=== PATIENT | female | born 1995 | race Native Hawaiian/Other Pacific Islander ===

== ENCOUNTER 2020-02-17 13:46 | Outpatient (REF) | payer OTHER, SELFPAY | END 2020-02-17 13:47 | disposition home or self-care (01) | LOC: HO.LAB 13:46 | PROVIDERS: Visit Provider Internal Medicine | DX: Z20.828 Contact with and (suspected) exposure to other viral communicable diseases (principal) | CPT/HCPCS: C9803; U0003 ==

== ENCOUNTER 2020-05-03 14:29 | Outpatient (REF) | payer OTHER, SELFPAY | END 2020-05-03 14:30 | disposition home or self-care (01) | LOC: HO.LAB 14:29 | PROVIDERS: Visit Provider Internal Medicine | DX: Z20.822 Contact with and (suspected) exposure to COVID-19 (principal) | CPT/HCPCS: 36415; C9803; U0003; U0005 ==

== ENCOUNTER 2021-02-18 14:05 | Emergency (ER) | payer OTHER, SELFPAY ==
[2021-02-18 15:13] VITALS: BP 115/35; PULSE 87; RESP 16; TEMP 36.3; O2SAT 100; BMI 21.9
[2021-02-18 15:38] LABS: UPreg QC Valid YES; Urine Pregnancy NEGATIVE (NEGATIVE)
--- NOTE | 2021-02-18 17:25 | ED.GENADULT ---
HPI - General Adult General Chief complaint: General Medical Stated complaint: ABD PAIN QUEST Time Seen by Provider: 02/18/21 17:22 Source: patient Mode of arrival: ambulatory Limitations: no limitations History of Present Illness HPI narrative: 26-year-old female presenting to the ER for evaluation of possible . She states her breasts are tender and sore. She took 2 test at home and feels like they were positive. She saw a slight line and is concerned she might be . Her partner told her that she was seeing things and that was negative. She had her IUD removed in the middle of December and has been on oral control pill since then. She has not had a period since her IUD was removed. She denies any abdominal pain, cramping, bleeding, vaginal discharge. MD complaint: Evaluation of possible . Relieving factors: none Exacerbating factors: none Associated symptoms: denies other symptoms Treatments prior to arrival: none Related Data Allergies Allergy/AdvReac Type Severity Reaction Status Date / Time latex Allergy Rash Verified 02/18/21 17:18 Penicillins Allergy Hives Verified 02/18/21 17:18 Review of Systems Review of Systems: Constitutional: No Fever, No Chills Cardiovascular: No Chest Pain, No SOB Respiratory: No Cough, No Sputum Gastrointestinal: No Nausea, No Vomiting, No abdominal Pain Genitourinary: No Dysuria, No Urinary Frequency, No Hematuria, no vaginal bleeding, no vaginal discharge. Musculoskeletal: No joint pain, + Myalgias Psych: + Anxiety/Panic PMFSH Past Medical History Medical History (Updated 02/18/21 @ 17:27 by KRISH Venegas) No known health problems Social History Social History Advance Directives: No Advance Directives Information Provided: Yes Physical Exam Vital Signs: Vital Signs: Last Vital Signs Temp 97.4 F 02/18/21 15:13 Pulse 87 02/18/21 15:13 Resp 16 02/18/21 15:13 BP 115/35 L 02/18/21 15:13 Pulse Ox 100 02/18/21 15:13 BMI result Body Mass Index 21.9 Appearance: Alert. Oriented X3. No acute distress. HEENT: normal inspection CVS: Normal heart rate and rhythm. Pulses normal. Respiratory: No respiratory distress. Skin: Skin warm and dry. Normal skin color. Normal skin turgor. No rashes. Extremities: Normal inspection, normal range of motion Neuro: Oriented X 3. Grossly normal, nonfocal Course Course Course Narrative: 23-year-old female presenting to the ER for evaluation of possible . She has tender breast but that is her only symptom. She has had no known menstrual cycle since her IUD was removed. There is a question of a positive test at home with faint line however her partner denies this. Today her urine test is negative. There is no indication for blood test. She is encouraged to repeat the test at home if she is still concerned for . Her breast tenderness may be due to her getting her menstrual cycle. At this time she is counseled and stable for discharge home Medical Decision Making Lab Data Labs: Lab Results 02/18/21 Range/Units 15:28 Urine Test NEGATIVE (NEGATIVE) Discharge Plan Discharge Clinical Impression: Breast tenderness in female, Irregular menses Patient Disposition: Home, Self-Care Instructions: Premenstrual Syndrome (ED) Additional Instructions: Your test today was negative. If you are still concerned about , recommend repeating the test in 48 hours. Use the urine from your 1st void in the morning. Follow up with your chief analytics officer as needed. Interventions: ED Discharge Assessment Last Done: 02/18/21 17:45 Discharge Date/Time: 02/18/21 17:47
== END 2021-02-18 17:47 | disposition home or self-care (01) ==
PROVIDERS: Emergency Provider Emergency Medicine Emergency Medical Services
DX: N64.4 Mastodynia (principal); N92.6 Irregular menstruation, unspecified
CPT/HCPCS: 81025; 99283; 99284

== ENCOUNTER 2021-03-02 11:46 | Outpatient (REF) | payer OTHER, SELFPAY | END 2021-03-02 11:47 | disposition home or self-care (01) | LOC: HO.LAB 11:46 | PROVIDERS: Visit Provider Internal Medicine | DX: Z20.822 Contact with and (suspected) exposure to COVID-19 (principal) | CPT/HCPCS: C9803; U0003; U0005 ==

== ENCOUNTER 2021-11-15 11:23 | Emergency (ER) | payer OTHER, SELFPAY ==
--- NOTE | 2021-11-15 | ECG_ITS ---
Test Reason : CHEST PAIN Blood Pressure : / mmHG Vent. Rate : 104 BPM Atrial Rate : 104 BPM P-R Int : 118 ms QRS Dur : 076 ms QT Int : 312 ms P-R-T Axes : 070 050 010 degrees QTc Int : 410 ms Sinus tachycardia Otherwise normal ECG No previous ECGs available Referred By: Generic ED Physician Electronically Signed By:AUGUSTIN MCMULLEN
[2021-11-15 12:07] VITALS: BP 117/72; PULSE 111; RESP 18; TEMP 37.1; O2SAT 99; BMI 20.6
--- NOTE | 2021-11-15 12:35 | PC.NURSE ---
pt is now c/o chest pain, ekg to be performed
[2021-11-15 13:05] LABS: COVID-19 Test Negative (Negative); IDNOW Serial# 55D5AD1C
== END 2021-11-15 16:22 | disposition left against medical advice (07) ==
PROVIDERS: Emergency Provider Emergency Medicine; PCP Internal Medicine
DX: R11.10 Vomiting, unspecified (principal); H53.8 Other visual disturbances; M79.10 Myalgia, unspecified site; R07.89 Other chest pain; Z20.822 Contact with and (suspected) exposure to COVID-19
CPT/HCPCS: 87635; 93005; 99283

== ENCOUNTER 2023-05-22 10:23 | Emergency (ER) | payer MEDICAID, SELFPAY ==
[2023-05-22 10:57] VITALS: BP 116/57; PULSE 73; RESP 16; TEMP 36.2; O2SAT 100; BMI 23.5
[2023-05-22 11:15] LABS: MANUAL DIFF FLAG NO
[2023-05-22 11:17] LABS: Basophils Percent Auto 0.4 % (0-2); Eosinophils Percent Auto 0.4 % (0-4); Hematocrit 44.6 % (37.0-47.0); Imm Gran Abs Auto 0.03 X10*3/uL (0.00-0.03); Imm Gran Pct Auto 0.3 % (0.0-0.4); Lymphocytes Absolute Auto 2.6 X10*3/uL (1.2-4.9); Lymphocytes Percent Auto 27.9 % (20-40); Mean Corpuscular HGB Conc 33.6 g/dl (31.0-35.0); Mean Corpuscular Hemoglobin 30.5 pg (27.0-33.0); Mean Corpuscular Volume 90.8 fL (80.0-98.0); Mean Platelet Volume 12.1 fL (9.4-12.3); Monocytes Absolute Auto 0.7 X10*3/uL (0.1-1.2); Monocytes Percent Auto 7.4 % (2-11); Neutrophils Absolute Auto 5.8 x10*3/uL (2.0-8.3); Neutrophils Percent Auto 63.6 % (45-73); Platelet Count 221 X10*3/uL (160-400); Red Blood Count 4.91 X10*6/uL (4.20-5.50); Red Cell Distribution Width 12.6 % (11.0-16.0); White Blood Count 9.1 X10*3/uL (4.8-10.8)
[2023-05-22 11:42] LABS: Alanine Aminotransferase 20 U/L (0-31); Albumin Level 4.5 g/dL (3.5-5.0); Alkaline Phosphatase 76 U/L (39-117); Anion Gap 10 (12-20); Aspartate Amino Transferase 24 U/L (5-31); Bilirubin Total 0.3 mg/dL (0.0-1.0); Blood Urea Nitrogen 19 mg/dL (9-16); Calcium 9.9 mg/dL (8.4-10.2); Carbon Dioxide 29 mmol/L (22-29); Chloride 105 mmol/L (96-108); Creatinine Clr Calc Pharmacy 80.2; Estimated Glomerular Filt Rate > 60; Glucose Random 85 mg/dL (60-115); Lipase 18 U/L (8-78); Potassium 4.1 mmol/L (3.3-5.1); Sodium 140 mmol/L (135-145)
[2023-05-22 11:47] LABS: HCG Quantitative < 2 mIU/mL
[2023-05-22 12:44] LABS: Influenza A PCR NEGATIVE (Negative); Influenza B PCR NEGATIVE (Negative); Resp Syncy Virus RNA Qual PCR NEGATIVE (Negative); SARS COV2 PCR INHOUSE NEGATIVE (Negative)
[2023-05-22 16:47] VITALS: BP 97/71; PULSE 73; RESP 16; O2SAT 97
[2023-05-22 17:07] LABS: Appearance Urine Clear; Color Urine Yellow; Glucose Urine UA Negative (Negative); Leukocyte Esterase Urine Negative (Negative); Nitrite Urine Negative (Negative); PH 7.5 (5.0-9.0); Specific Gravity - Urine 1.025 (1.005-1.025); Urine Blood Negative (Negative); Urine Ketones Negative (Negative); Urine Protein Negative (Neg-Trace)
--- NOTE | 2023-05-22 18:33 | ED_ITS ---
HPI - General Adult General Chief complaint: Nausea/Vomiting/Diarrhea Stated complaint: Vomiting Time Seen by Provider: 05/22/23 18:18 Source: patient Limitations: no limitations History of Present Illness HPI narrative: 28 years old, , presents emergency room for nausea and vomiting that started today. Patient has been started on sunday on doxycycline for her partner positive for chlamydia. She has not received ceftriaxone She is also 2 weeks late on her period which she usually gets every 4 weeks. Patient is not on any anti contraceptive. Has had unprotected sex with a partner over the past 30 days. Denies vaginal discharge or vaginal bleeding. Denies dyspareunia. Reports allergy to penicillin: Rash Denies abdominal pain, chest pain, shortness of breath Related Data Previous Rx's Medication Instructions Recorded ondansetron HCl 4 mg tablet 4 mg PO BEDTIME PRN nausea and 05/22/23 vomiting 4 days #14 tabs Allergies Allergy/AdvReac Type Severity Reaction Status Date / Time latex Allergy Intermediate Rash Verified 11/15/21 12:07 Penicillins Allergy Intermediate Hives Verified 11/15/21 12:07 Review of Systems 2 Review of Systems: Yes all other systems are reviewed and are negative [facility] Past Medical History Medical History (Updated 05/22/23 @ 19:24 by Dionte Ordaz MD) No known health problems Social History Social History Smoked in Last 30 Days: No Use of substances other than those prescribed or required for medical reasons: No Advance Directives: No Advance Directives Information Provided: No Physical Exam ED Vital Signs: Vital Signs - 24 hr 05/22/23 10:57 05/22/23 16:47 05/22/23 19:28 Temperature 97.2 F 97.7 F Pulse Rate 73 73 67 Respiratory Rate 16 16 18 Blood Pressure 116/57 L 97/71 104/60 Pulse Oximetry 100 97 98 Oxygen Delivery Method Room Air Room Air Room Air BMI result Body Mass Index 23.5 General: Alert, Not in Distress Skin: No rash, warm HEENT: Atraumatic, No Exudate or Pharyngeal Erythema Resp: Normal Breath sounds bilaterally Cardio: Regular rate and Rhythm, Normal S1, S2 ABD: Abd soft, non tender, no guarding or rebound. Normal Bowel sounds. : No cva tenderness Neuro: Alert, oriented x4, PERRL Strenght 5/5 on all extremities Sensation is preserved in both lower and upper extremities Index to nose: normal Cranial Nerves II-XII grossly intact No dysarthria, or aphasia No neglet. Visual mondragon are normal bilaterally Psych: Cooperative, NO SI Course Reevaluation(s) Reevaluation #1: test is negative. At this time the cause of the amenorrhea is unclear. I recommended the patient to continue take a vitamin until she gets her next menstruation. I offered the patient to change the doxycycline to azithromycin considering that the nausea and vomiting is possibly secondary to the antibiotic however the patient would prefer continuing doxycycline being these the first-line to treat chlamydia. Will give ceftriaxone 500 mg IM and observed for 30 minutes. Time: 19:20 Reevaluation #2: No reaction to cephalosporin. Will DC home. Time: 20:14 Medications Administered Discontinued Medications Generic Name Dose Route Start Last Admin Trade Name Freq PRN Reason Stop Dose Admin Ceftriaxone Sodium 500 mg 05/22/23 18:27 05/22/23 19:49 Ceftriaxone Sodium 500 Mg Vial IM 05/22/23 18:28 Not Given ONCE ONE Ceftriaxone Sodium 500 mg/ 0 mg 05/22/23 19:38 05/22/23 19:50 Lidocaine HCl 1 ml IM 05/22/23 19:39 500 kit ONCE ONE Administration Ondansetron HCl 4 mg 05/22/23 18:27 05/22/23 19:28 Ondansetron Odt 4 Mg Tab.Rapdis TRANSLINGU 05/22/23 18:28 4 mg ONCE ONE Administration Medical Decision Making Medical Decision Making [facility] Narrative: Patient presented to the emergency room for nausea and vomiting. Possible differential diagnosis include medication reaction to doxycycline or 1st trimester and hyperemesis gravidarum. Patient lab work done in triage were unremarkable, test is pending. Plan Treat STI with ceftriaxone 500 mg IM will keep the patient for 30 to 60 minutes after injection to make sure she does not develop any allergic reaction considering she has flushed the penicillin If patient is we will give 1 single dose of 1 g of azithromycin If patient is not will discuss with her possibly starting azithromycin versus continuing doxycycline. Will give Zofran Admission/Observation Consideration of admission/observation: Escalation of care including admission/observation considered Lab Data [facility] Lab Attestation statement: I reviewed the patient's lab results. 05/22/23 11:09 05/22/23 11:09 Labs: Lab Results 0305/22/23 05/22/23 Range/Units 11:09 12:01 16:58 WBC 9.1 (4.8-10.8) X10*3/uL RBC 4.91 (4.20-5.50) X10*6/uL Hgb 15.0 (12.0-16.0) g/dl Hct 44.6 (37.0-47.0) % MCV 90.8 (80.0-98.0) fL MCH 30.5 (27.0-33.0) pg MCHC 33.6 (31.0-35.0) g/dl RDW 12.6 (11.0-16.0) % Plt Count 221 (160-400) X10*3/uL MPV 12.1 (9.4-12.3) fL Immature Gran % (Auto) 0.3 (0.0-0.4) % Neut % (Auto) 63.6 (45-73) % Lymph % (Auto) 27.9 (20-40) % [place] % (Auto) 7.4 (2-11) % Eos % (Auto) 0.4 (0-4) % Baso % (Auto) 0.4 (0-2) % Lymph # (Auto) 2.6 (1.2-4.9) X10*3/uL [place] # (Auto) 0.7 (0.1-1.2) X10*3/uL Eos # (Auto) 0.0 (0.0-0.4) X10*3/uL Baso # (Auto) 0.0 (0.0-0.2) X10*3/uL Abs Immat Gran (auto) 0.03 (0.00-0.03) X10*3/uL Absolute Neuts (auto) 5.8 (2.0-8.3) x10*3/uL Absolute Nucleated RBC 0.000 (0.0-0.012) X10*3/uL Nucleated RBC % (auto) 0.0 (0.0-0.2) /100WBC Sodium 140 (135-145) mmol/L Potassium 4.1 (3.3-5.1) mmol/L Chloride 105 (96-108) mmol/L Carbon Dioxide 29 (22-29) mmol/L Anion Gap 10 L (12-20) BUN 19 H (9-16) mg/dL Creatinine 0.84 (0.5-1.4) mg/dL Estim Creat Clear Calc 80.2 Estimated GFR > 60 Random Glucose 85 (60-115) mg/dL Calcium 9.9 (8.4-10.2) mg/dL Total Bilirubin 0.3 (0.0-1.0) mg/dL AST 24 (5-31) U/L ALT 20 (0-31) U/L Alkaline Phosphatase 76 (39-117) U/L Total Protein 8.0 (6.5-8.0) g/dL Albumin 4.5 (3.5-5.0) g/dL Lipase 18 (8-78) U/L Beta HCG, Quant < 2 mIU/mL Urine Color Yellow Urine Appearance Clear Urine pH 7.5 (5.0-9.0) Ur Specific Mobile 1.025 (1.005-1.025) Urine Protein Negative (Neg-Trace) mg/dL Urine Glucose (UA) Negative (Negative) mg/dL Urine Ketones Negative (Negative) mg/dL Urine Blood Negative (Negative) Urine Nitrite Negative (Negative) Ur Leukocyte Esterase Negative (Negative) Urine Test NEGATIVE (NEGATIVE) Influenza Type A (PCR) NEGATIVE (Negative) Influenza Type B (PCR) NEGATIVE (Negative) RSV RNA Qual (PCR) NEGATIVE (Negative) SARS-CoV-2 RNA (RT-PCR) NEGATIVE (Negative) External Record Review External record reviewed: Prior outpatient labs Prescription Management I considered prescription management with: Antibiotic Discharge Plan Discharge Clinical Impression: Vomiting Patient Disposition: Home, Self-Care Additional Instructions: You were seen in the emergency room for vomiting. It is possible that this is secondary to doxycycline we offered the azithromycin has a alternative option but at this time you prefer continue this antibiotic. For nausea we recommend using Zofran 4 mg Q 8 hours for symptoms control. If you are unable to tolerate p.o. or to take your antibiotic please return to the emergency room or go to an urgent care to be switched to azithromycin. You also received ceftriaxone 500 mg IM which will cover for possible infection with gonorrhea. Continue to take your vitamin until your next menstruation. Repeat test in 1 week if still not having your menstruation. Prescriptions: New ondansetron HCl 4 mg tablet 4 mg PO BEDTIME PRN (Reason: nausea and vomiting) 4 Days Qty: 14 0RF
[2023-05-22 19:00] LABS: UPreg QC Valid YES; Urine Pregnancy NEGATIVE (NEGATIVE)
[2023-05-22 19:28] VITALS: BP 104/60; PULSE 67; RESP 18; TEMP 36.5; O2SAT 98
[2023-05-22] MEDS: Ondansetron ODT 4 MG TAB.RAPDIS TRANSLINGU (19:28)
[2023-05-22] MEDS: cefTRIAXone sodium 500 MG, Lidocaine HCl 1 % MPF 1 ML IM (19:50)
[2023-05-22 20:00] VITALS: BP 111/62; PULSE 71; RESP 19; TEMP 36.5; O2SAT 98
== END 2023-05-22 20:22 | disposition home or self-care (01) ==
PROVIDERS: Physician Assistant Medical; Emergency Provider Student in an Organized Health Care Education/Training Program
DX: R11.2 Nausea with vomiting, unspecified (principal); N91.2 Amenorrhea, unspecified; R19.7 Diarrhea, unspecified; Z79.899 Other long term (current) drug therapy; Z11.52 Encounter for screening for COVID-19; Z20.822 Contact with and (suspected) exposure to COVID-19
CPT/HCPCS: 0241U; 36415; 80053; 81003; 81025; 83690; 84702; 85025; 96372; 99284; J0696

== ENCOUNTER 2023-06-08 20:57 | Emergency (ER) | payer MEDICAID, SELFPAY ==
[2023-06-08 21:26] VITALS: BP 105/67; PULSE 80; RESP 16; TEMP 36.9; O2SAT 100; BMI 23.4
--- NOTE | 2023-06-08 22:11 | ED.GENADULT ---
HPI - General Adult General Chief complaint: General Medical Stated complaint: + Preg test at home, wants one here Time Seen by Provider: 06/08/23 22:07 Source: patient Mode of arrival: ambulatory Limitations: no limitations History of Present Illness HPI narrative: Patient comes to the emergency room stating that she had a home positive test. Patient states that she came to the emergency room to get a blood confirmation. Patient denies abdominal pain, no nausea vomiting diarrhea, denies vaginal bleeding. Patient is , she will be a G 2p1. Last menstrual period was on 04/11/2023 Related Data Previous Rx's Medication Instructions Recorded ondansetron HCl 4 mg tablet 4 mg PO BEDTIME PRN nausea and 05/22/23 vomiting 4 days #14 tabs Allergies Allergy/AdvReac Type Severity Reaction Status Date / Time latex Allergy Intermediate Rash Verified 06/08/23 21:24 Penicillins Allergy Intermediate Hives Verified 06/08/23 21:24 Review of Systems Review of Systems: Constitutional : No Weight loss, No Fever, No Chills, No Night Sweats, No Fatigue, No Malaise ENT/Mouth : No Hearing loss, No Ear Pain, No Nasal Congestion, No Sinus Pain, No Hoarseness, No sore throat, No Rhinorrhea, No Swallowing Difficulty Eyes: No Eye Pain, No Swelling, No Redness, No Foreign Body, No Discharge, No Vision Changes Cardiovascular : No Chest Pain, No SOB, No Dyspnea on Exertion, No Orthopnea, No Edema, No Palpitations Respiratory : No Cough, No Sputum, No Wheezing, No Smoke Exposure, No Dyspnea Gastrointestinal : No Nausea, No Vomiting, No Diarrhea, No Constipation, No abdominal Pain, No Hematochezia, No Melena Genitourinary : no irregular bleeding, No Dysuria, No Urinary Frequency, No Hematuria, No Urinary Incontinence, No Urgency, No Flank Pain, No Urinary Flow Changes, No Hesitancy Musculoskeletal : No joint pain, No Myalgias, No Joint Swelling Skin : No Skin Lesions, No rash Neuro : No Weakness, No Numbness, No Paresthesias, No Loss of Consciousness, No Dizziness, No Headache Psych : No Anxiety/Panic, No Depression, No SI/HI/AH/VH, No Social Issues, Heme/Lymph: No Bruising, No Bleeding,No Lymphadenopathy Endocrine : No Polyuria, No Polydipsia, No Temperature Intolerance PMFSH Past Medical History Medical History No known health problems Social History Social History Advance Directives: No Advance Directives Information Provided: No Physical Exam ED Vital Signs: Vital Signs - 24 hr 06/08/23 21:26 Temperature 98.5 F Pulse Rate 80 Respiratory Rate 16 Blood Pressure 105/67 Pulse Oximetry 100 Oxygen Delivery Method Room Air BMI result Body Mass Index 23.4 Const Other: Appearance: Alert. Oriented X3. No acute distress. Eyes: Pupils equal, round and reactive to light. ENT: Pharynx normal. Neck: Normal inspection. Neck supple. No lymph nodes noted. No crepitus CVS: Normal heart rate and rhythm. Pulses normal. Normal S1 and S2 Respiratory: No respiratory distress. Breath sounds normal. No Wheezing. No rales Abdomen: Soft and nontender. No rigidity. No distention. Skin: Skin warm and dry. Normal skin color. Normal skin turgor. Extremities: No lower extremity edema. No Lacerations. No Rash Neuro: Oriented X 3. No motor deficit. No sensory deficit. Moving all extremities. No slurred speech. CN 2 through 12 grossly intact Psych: calm, cooperative, normal affect Course Course Course Narrative: Patient's hCG levels pending Medical Decision Making Medical Decision Making MDM Narrative: -discussed with the patient that her hCG is 20,300. -based on her last menstrual period and the hCG level, patient is at least 6 weeks, likely between 6-8 -patient already has an OBGYN Lab Data Labs: Lab Results 06/08/23 Range/Units 21:31 Beta HCG, Quant 82223 mIU/mL Discharge Plan Discharge Clinical Impression: Patient Disposition: Home, Self-Care Instructions: (ED) Additional Instructions: Please follow-up with your primary care physician tomorrow. If you have any worsening or new symptoms, please return to the emergency room or call 911 Prescriptions: No Action ondansetron HCl 4 mg tablet 4 mg PO BEDTIME PRN (Reason: nausea and vomiting) 4 Days Qty: 14 0RF
[2023-06-08 22:16] LABS: HCG Quantitative 20301 mIU/mL
[2023-06-08 22:42] VITALS: BP 105/67; PULSE 81; RESP 16; TEMP 36.9
== END 2023-06-08 22:44 | disposition home or self-care (01) ==
PROVIDERS: Emergency Provider Emergency Medicine
DX: Z32.01 Encounter for pregnancy test, result positive (principal)
CPT/HCPCS: 36415; 84702; 99282; 99283

== ENCOUNTER 2023-08-16 11:06 | Outpatient (REF) | payer MEDICAID, SELFPAY ==
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
== END 2023-08-16 11:07 | disposition home or self-care (01) ==
LOC: HO.XRAY 11:06
PROVIDERS: Visit Provider Chiropractor
DX: M25.532 Pain in left wrist (principal)
CPT/HCPCS: 73110